=== PATIENT | female | born 1965 | race Caucasian/White ===

== ENCOUNTER 2016-07-09 14:15 | Inpatient (IN) ==
--- NOTE | 2016-07-09 10:57 | Discharge Summary ---
<Yaneli Bray - Last Filed: 07/09/16 10:55> Date of Encounter: 07/12/16 - Discharge Diagnosis (1) Aseptic loosening of prosthetic knee Priority: Primary Status: Acute Qualifiers: Encounter type: initial encounter Qualified Code(s): T84.038A - Mechanical loosening of other internal prosthetic joint, initial encounter; Z96.659 - Presence of unspecified artificial knee joint (2) Obesity Priority: Secondary Status: Chronic Qualifiers: Obesity type: unspecified obesity type Obesity severity: morbid Qualified Code(s): E66.01 - Morbid (severe) obesity due to excess calories (3) Spondylosis of lumbar region without myelopathy or radiculopathy Priority: Secondary Status: Chronic - Discharge Medications Home Medications: Aspirin Enteric Coated [Aspirin EC] 325 mg PO BID #42 tablet.dr 07/09/16 [Rx] FLUoxetine HCl [PROzac] 10 mg PO DAILY 07/09/16 [History] HYDROcodone/Acet 5/325 mg [[place] 5-325 mg] 1 PO BID PRN MDD bid 07/09/16 [ History] Montelukast [Singulair] 10 mg PO HS 07/09/16 [History] OxyCODONE Immed Rel [Roxicodone 5 MG] 5 - 10 mg PO Q6HR PRN #40 tablet 07/09/16 [Rx] Allergies/Adverse Reactions: Allergies ceftriaxone [From Rocephin] Allergy (Verified 12/14/15 09:09) Rash Primary care physician: Valeriy Moses - Patient Status Disposition: Home, Self-Care Condition: Good - Discharge Instructions Follow Up With: Valeriy Moses DO [Primary Care Provider] - - Hospital Course Hospital course: Ms. Crain is a 50 year old female - Time Spent with Patient Total time spent providing and/or coordinating discharge services: <En Abreu - Last Filed: 07/10/16 06:25> Date of Encounter: 07/10/16 Time of Encounter: 06:25 - Discharge Diagnosis (1) Aseptic loosening of prosthetic knee Priority: Primary Status: Acute Qualifiers: Encounter type: subsequent encounter Qualified Code(s): T84.038D - Mechanical loosening of other internal prosthetic joint, subsequent encounter; Z96.659 - Presence of unspecified artificial knee joint (2) Obesity Priority: Secondary Status: Chronic Qualifiers: Obesity type: unspecified obesity type Obesity severity: morbid Qualified Code(s): E66.01 - Morbid (severe) obesity due to excess calories (3) Spondylosis of lumbar region without myelopathy or radiculopathy Priority: Secondary Status: Chronic Primary care physician: Valeriy Moses - Patient Status Functional capacity at discharge: uses cane/walker Overall status at discharge: patient is progressing back to baseline - Hospital Course Hospital course: Ms. Crain is a 50 year old female The patient had an uneventful postoperative course. They received antibiotics and physical therapy and were discharged in stable condition. There will follow -up in the office in 2 weeks. Aspirin DVT prophylaxis - Time Spent with Patient Total time spent providing and/or coordinating discharge services:
--- NOTE | 2016-07-09 14:57 | History & Physical Report ---
Date of Encounter: 07/09/16 Time of Encounter: 14:57 24 Hour HP Update - Instructions Instructions: If the History and Physical is less than 30 days old and was completed prior to A.M. admission and or procedure and has NOT been updated on calendar day of procedure please complete this update prior to performing procedure. - Update Patient reports changes in Medical Condition: No Changes in assessment/condition: No Changes in Medication: No Preop tests/diagnostics Reviewed: Yes Surgery Remains Indicated: Yes Consent for Planned Operative Procedure(s) Verified: Yes - Pre-Operative Checklist Preoperative Checklist Indicated: No Prophylactic Antibiotic Ordered: Yes Is VTE Prophylaxis Indicated?: Yes
[2016-07-09] MEDS ORDERED: Scopolamine Patch 1.5 MG PATCH.TD72 TD ONE (15:00)
[2016-07-09] MEDS ORDERED: Ringers Solution, Lactated 1,000 ML IVC SCH ×2 (15:00→19:56)
--- NOTE | 2016-07-09 15:01 | Anesthesia Evaluation PreOp ---
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 07/09/16 [Rx] OxyCODONE Immed Rel [Roxicodone 5 MG] 5 - 10 mg PO Q6HR PRN #40 tablet 07/09/16 [Rx] Allergies ceftriaxone [From Rocephin] Allergy (Verified 12/14/15 09:09) Rash - Meds/Allergy Pre-op Review Medications Reviewed: Yes Allergies Reviewed: Yes Beta Blockers on Current Med List: No Anesthesia Results - Labs Laboratory Tests 06/19/16 06/19/16 06/19/16 11:22 11:22 11:22 WBC 7.2 Hgb 13.3 Hct 41.3 Plt Count 331 PT 10.3 INR 1.0 APTT 29.2 Sodium 138 Potassium 4.1 Chloride 106 Carbon Dioxide 24 BUN 14 Creatinine 0.82 Est GFR ( Amer) > 60 Est GFR (Non-Af Amer) > 60 BUN/Creatinine Ratio 17 Anesthesia Exam Last Vital Signs Temp 97.9 F 07/09/16 14:47 Pulse 73 07/09/16 14:47 Resp 18 07/09/16 14:47 BP 142/82 07/09/16 14:47 Pulse Ox 96 07/09/16 14:47 Weight: 108 kg NPO (# of Hours): >> 8 hrs - HEENT Pupil (Motor): Pupils equal, EOMI Mallampati: III Teeth: Normal Oral Opening: Greater than 3 - REFRACTORY TECHNICIAN LOC: Oriented - Cardiac Rhythm: Regular Murmur: None - Pulmonary Breath Sounds: bilateral Clear Respiratory Effort: Symmetrical Anesthesia Assess/Plan ASA Score: 3 Modified [place] Scale for Level of Consciousness: Cooperative, oriented, and tranquil Anesthetic Plan: General Monitoring Plan: Standard Monitors Recovery Plan: PACU
[2016-07-09] MEDS ORDERED: Clindamycin 900 MG/50 ML 900 MG/50 ML IV.SOLN IVPB ONE (15:07)
[2016-07-09] MEDS ORDERED: Lidocaine -MPF 2% 5 ML VIAL INFILT ONE (16:32)
[2016-07-09] MEDS ORDERED: ROPIVACAINE HCL/PF 0.5% 30 ML VIAL ONE (16:32)
[2016-07-09] MEDS ORDERED: Tetracaine/PF 20 MG/2 ML AMPUL SPINA ONE (16:32)
[2016-07-09] MEDS ORDERED: Bupivacaine/EPI 1:200k 0.5%PF 10 ML VIAL ONE (16:32)
[2016-07-09] MEDS ORDERED: Dexamethasone 4 MG/ML VIAL ONE (17:07)
[2016-07-09] MEDS ORDERED: Ondansetron 4 MG/2 ML VIAL ONE (17:07)
[2016-07-09] MEDS ORDERED: *HR* Promethazine 25 MG/ML VIAL IVP PRN (17:17)
[2016-07-09] MEDS ORDERED: Ketorolac 30 MG/ML VIAL ONE (17:19)
--- NOTE | 2016-07-09 17:46 | Anesthesia Procedures ---
Date of Encounter: 07/09/16 Time of Encounter: 16:45 Procedures: Anesthesia - Nerve Block Procedure Date: 07/09/16 Time: 16:45 Surgical Procedure: right total knee revision Checklist: Correct Patient Identifier, Correct procedure, History checked Correct side: Right Monitor Applied: EKG, BP, Pulse Oximetry Sedation: Versed (mg): 2 Sedation: Fentanyl (mcg): 100 Indication: Post Op Analgesia Pre-op Neuro Deficits: No Block Type: Femoral Catheter placed: No Sterile Technique: Yes Ultrasound used: Yes Anatomy identified: Yes Visual spread of Local: Yes Neuro Stimulation: Yes Nerve Stimulator Range: 0.2 - 0.4 mA Blood on Needle Aspiration: No Smooth Injection of Local: Yes Pain with Injection of Local: No Prep: Chlorhexadine Needle: 22 x 50 mm Stimuplex Local: Tetracaine (2ml 1%), Ropivacaine (30m 0.5%), Other (10ml 0.5% bup with epi, 3ml 2% lido) Volume (cc): 45 Number of Attempts: 1 Complications: None/effective block Vitals: vss though out, block per request of surgeon
[2016-07-09] MEDS ORDERED: *HR* Enoxaparin 30 MG/0.3 ML SYRINGE SQ SCH (18:00)
--- NOTE | 2016-07-09 18:10 | Orthopedic Operative Note ---
Date of procedure: 07/09/16 Pre-op diagnosis: Aseptic loosening right total knee Post-op diagnosis: same Procedure: Procedure: Left revision total knee Estimated blood loss: 500 mL Hardware: Biomet 360 femur 62.5 right 16 x 120 stem, 71 tibia 12 x 80 stem small cruciate weighing 18 constrained Brenda 34 patella Exam Under anesthesia: Full extension and flexion no significant instability Procedural Notes: Loose tibia and loose femur. Operative procedure: The patient was brought to the operating room and placed on the operating room table. After general anesthesia was administered the operative knee was examined. Findings were noted in the exam under anesthesia. The operative extremity was prepped and draped in sterile surgical fashion. The patient received IV antibiotics prior to skin incision. A standard midline incision was made centered over the patella through the old incision. The incision was made through the skin and subcutaneous tissue. A medial parapatellar tendon approach was performed. Care was taken to preserve tissue along the medial aspect of the patella. And to protect the patella tendon. The deep MCL was released off the medial tibia. The infra patella fat pad was excised. Fluid was encountered this was normal joint fluid, Cultures were obtained and gram . The knee was brought into flexion the poly-was removed. The interface between the patient's femoral component and distal femur were disrupted with a osteotome and oscillating saw. Femoral component was loose and was removed without significant bone loss. Attention was then turned to the tibial component. The same technique was used to remove the tibial component by disrupting the interface between the patient's tibial component and the patients proximal tibia. The tibial component was loose, was removed without significant bone loss. The tibia was sized to a 71 it was reamed up to a 12 x 80. Trial had good fit and fixation. The femur was sized to a 62 5, was reamed up to a 16 x 120. The finishing guide was seated and the box cut was made. The trial had good fit and fixation. Both trial components were seated and the 18 constrained Brenda was seated and secured. The knee had full flexion and full extension with no instability. The patella was everted, the patella was transected below the patella component. It was sized to a 34 the guide was seated the lug holes are drilled. Patella had excellent patella tracking. The trial components were removed. The knee sat for 2 minutes with a Betadine saline solution. It was irrigated out with 2 L of pulse irrigation. The components were assembled on the back table, the tibia cemented first followed by the femur. The 18 constrained liner was seated and secure. The knee was brought to full extension while the cement hardened. The patella was cemented and held in place with patellar holding clamp. After the cement hardened the knee was irrigated out again. The extensor mechanism was closed with a running #2 Fiberwire suture and a running #2 PDS suture. The deep tissue was irrigated and closed deep with #1 PDS suture superficially with 0 PDS suture. The skin was closed with Dermabond and skin gurpreet. The patient was placed in a sterile dressing and postoperative brace. They were extubated and transferred to recovery room in stable condition. Anesthesia: RAJNI Surgeon: En Abreu [place] Pumper: Yaneli Bray Condition: stable Disposition: PACU
[2016-07-09] MEDS: *HR* HYDROmorphone (PF) 1 MG/ML SYRINGE IVP PRN ×3 (18:33→20:24)
[2016-07-09 18:58] LABS: Hematocrit 37.2 % (35.3-44.9); Hemoglobin 12.3 g/dL (11.5-15.4)
--- NOTE | 2016-07-09 19:49 | Anesthesia Evaluation Post Op ---
Date of Encounter: 07/09/16 Time of Encounter: 19:45 - Vital Signs Vital Signs: Vital Signs/O2 Sat, Most Current Temp Pulse Resp BP Pulse Ox 97.9 F 79 16 115/71 96 07/09/16 19:27 07/09/16 19:27 07/09/16 19:27 07/09/16 19:27 07/09/16 19:27 - Lungs Lungs: Clear Ascult./Percussion - Airway Airway: Non-obstructed - Cardiovascular Regular Rate - Mental Status Mental Status: Alert & Oriented, Answers Appropriately - Pain Pain Scale: 5 Pain Scale used: Numeric (1 - 10) - Nausea Vomiting Nausea Vomiting: Not Present - Hydration Hydration: NPO, Has not voided Notes: Patient c/o chest pain in PACU. VSS. ECG shows SR with NSST abnormality. No radiation of chest pain. Chest pain resolved but will check troponin to rule out cardiac event. 07/09/16 19:51 - Discharge PostOp Status: Transfer Patient to floor
[2016-07-09] MEDS ORDERED: Sennosides 8.6 MG TABLET PO PRN (19:56)
[2016-07-09] MEDS ORDERED: Albuterol Neb 1.25 MG/3 ML VIAL IH ONE (19:56)
[2016-07-09] MEDS ORDERED: Clindamycin 900 MG/50 ML 900 MG/50 ML IV.SOLN IVPB SCH (19:56)
[2016-07-09] MEDS ORDERED: MOM Conc 10 ML UD.LIQ PO PRN (19:56)
[2016-07-09] MEDS ORDERED: Acetaminophen 325 MG TABLET PO PRN (19:56)
[2016-07-09] MEDS ORDERED: Naloxone 0.4 MG/ML INJ IVP PRN (19:56)
[2016-07-09] MEDS ORDERED: *HR* OxyCODONE Immed Rel 5 MG TABLET PO PRN (19:56)
[2016-07-09] MEDS ORDERED: Temazepam 15 MG CAPSULE PO PRN (19:56)
[2016-07-09] MEDS ORDERED: Ondansetron 4 MG/2 ML VIAL IVP PRN (19:56)
[2016-07-09] MEDS ORDERED: FLUoxetine HCl 10 MG CAPSULE PO SCH (21:00)
[2016-07-09] MEDS: *HR* OxyCODONE Immed Rel 5 MG TABLET PO PRN (23:07)
[2016-07-09] MEDS: Clindamycin 900 MG/50 ML 900 MG/50 ML IV.SOLN IVPB SCH (23:11)
[2016-07-10] MEDS: *HR* HYDROmorphone (PF) 1 MG/ML SYRINGE IVP PRN ×2 (01:39→06:01)
[2016-07-10] MEDS: Clindamycin 900 MG/50 ML 900 MG/50 ML IV.SOLN IVPB SCH (06:00)
[2016-07-10 06:15] LABS: Hematocrit 32.5 % (35.3-44.9)
[2016-07-10 06:17] LABS: Hemoglobin 10.7 g/dL (11.5-15.4)
[2016-07-10] MEDS ORDERED: *HR* Enoxaparin 30 MG/0.3 ML SYRINGE SQ SCH (06:17)
[2016-07-10 06:26] LABS: BUN/Creatinine Ratio 19 (6-26); Blood Urea Nitrogen 13 mg/dL (7-20); Calcium 8.1 mg/dL (8.6-10.8); Carbon Dioxide 23 mEq/L (19-29); Chloride 109 mEq/L (98-109); Glucose 147 mg/dL (70-99); Osmolality,Calculated 293 (280-300); Potassium 4.7 mEq/L (3.5-4.5); Sodium 140 mEq/L (136-145); eGFR For African Americans > 60 (> 60); eGFR For Non-African Americans > 60 (> 60)
--- NOTE | 2016-07-10 06:26 | Orthopedics Progress Note ---
Date of Encounter: 07/10/16 Time of Encounter: 06:26 - Assessment and Plan (1) Aseptic loosening of prosthetic knee Current Visit: Yes Status: Acute Qualifiers: Encounter type: subsequent encounter Qualified Code(s): T84.038D - Mechanical loosening of other internal prosthetic joint, subsequent encounter; Z96.659 - Presence of unspecified artificial knee joint (2) Obesity Current Visit: Yes Status: Chronic Qualifiers: Obesity type: unspecified obesity type Obesity severity: morbid Qualified Code(s): E66.01 - Morbid (severe) obesity due to excess calories (3) Spondylosis of lumbar region without myelopathy or radiculopathy Current Visit: No Status: Chronic Subjective Interval history: Patient was seen this morning doing well without complaints. Afebrile vital signs stable. Operative extremity: Neurovascularly intact Dressing clean dry and intact Calves nontender Assessment and plan: Continue with postoperative care Discharge today Objective Vital signs: Vital Signs Temp Pulse Resp BP Pulse Ox 07/10/16 04:00 98.2 F 71 16 131/81 98 07/09/16 23:01 98.2 F 95 14 120/72 94 L 07/09/16 21:52 98.1 F 82 14 101/67 97 07/09/16 20:54 97.9 F 83 15 101/72 97 07/09/16 20:20 98.2 F 76 14 106/66 98 07/09/16 19:50 97.8 F 76 12 108/68 98 07/09/16 19:27 97.9 F 79 16 115/71 96 07/09/16 19:17 78 16 109/65 95 07/09/16 19:07 79 16 111/70 95 07/09/16 18:57 97.9 F 80 16 116/68 95 07/09/16 18:47 80 16 118/66 94 L 07/09/16 18:37 78 16 107/62 94 L 07/09/16 18:27 97 F L 88 16 132/86 92 L 07/09/16 14:47 97.9 F 73 18 142/82 96 Intake and Output 07/09/16 07/09/16 07/10/16 15:59 23:59 07:59 Intake Total 290 / 290 Output Total 800 / 800 200 / 200 Balance -800 / -800 90 / 90 Intake: IV Fluids 50 / 50 Cleocin 900 MG/50 ML 900 50 / 50 mg In 50 ml @ 50 mls/hr IVPB Q8H [facility] Rx#: [id number] Oral 240 / 240 Output: Urine 300 / 300 200 / 200 Estimated Blood Loss 500 / 500 Other: Weight 108.409 kg - Labs CBC & BMP: 07/10/16 05:35 Labs: Abnormal lab results Hgb 10.7 g/dL (11.5-15.4) L D 07/10/16 05:35 Hct 32.5 % (35.3-44.9) L 07/10/16 05:35 - VTE Documentation of Mechanical Device: Venous foot pump, device Consult Discharge Plan - Plan Referrals: Valeriy Moses DO [Primary Care Provider] -
[2016-07-10] MEDS: *HR* OxyCODONE Immed Rel 5 MG TABLET PO PRN (09:17)
[2016-07-10] MEDS ORDERED: FLU VACC QS2016-17 36MOS UP/PF 0.5 ML SYRINGE IM ONE (09:25)
[2016-07-10 11:10] VITALS: BP 108/72
--- NOTE | 2016-07-10 14:46 | Electrocardiograph Report ---
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
== END 2016-07-10 11:40 | disposition home or self-care (01) | DRG 302 ==
LOC: SAMDAY 14:15 → 3NENU 19:50
PROVIDERS: ADMIT Orthopaedic Surgery; ATTEND Orthopaedic Surgery